=== PATIENT | male | born 1950 | race Caucasian/White ===

== ENCOUNTER → 2017-12-04 | Outpatient (CLI) | payer MEDICARE | LOC: M RAD 14:01 | DX: M15.0 Primary generalized (osteo)arthritis (principal); M54.17 Radiculopathy, lumbosacral region | CPT/HCPCS: 72148 ==

== ENCOUNTER → 2018-04-21 | Outpatient (CLI) | payer MEDICARE ==
[2018-04-21 10:49] LABS: BASO # 0.1 10^3/uL (0.0-0.2); EOS # 0.3 10^3/uL (0.0-0.50); HEMATOCRIT 47.9 % (42.0-52.0); HEMOGLOBIN 16.5 g/dl (13.5-17.5); IMMATURE GRANULOCYTE # 0.1 10^3/uL (0-0); IMMATURE GRANULOCYTE % 0.9 % (0-3.0); LYMPH # 2.3 10^3/uL (1.5-4.5); MEAN CORPUSCULAR HEMOGLOBIN 33.1 pg (27.0-33.0); MEAN CORPUSCULAR HGB CONC 34.4 g/dl (32.0-36.5); MONO # 0.7 10^3/uL (0.0-0.8); MONO % 10.7 % (0.0-5.0); NEUTROPHILS # 3.4 10^3/uL (1.8-7.7); NEUTROPHILS % 49.4 % (36.0-66.0); PLATELET COUNT, AUTOMATED 222 10^3/uL (150-450); RED BLOOD COUNT 4.99 10^6/uL (4.30-6.10); RED CELL DISTRIBUTION WIDTH 11.9 % (11.5-14.5); WHITE BLOOD COUNT 6.8 10^3/uL (4.0-10.0)
[2018-04-21 10:59] LABS: INR 0.94; PROTHROMBIN TIME 12.6 SECONDS (12.1-14.4)
[2018-04-21 11:00] LABS: PARTIAL THROMBOPLASTIN TIME 28.1 SECONDS (25.4-37.6)
[2018-04-21 11:18] LABS: ALBUMIN/GLOBULIN RATIO 1.14 (1.00-1.93); ALKALINE PHOSPHATASE 86 U/L (45-117); ALT/SGPT 37 U/L (12-78); ANION GAP 7 MEQ/L (8-16); AST/SGOT 20 U/L (7-37); BILIRUBIN,TOTAL 0.6 MG/DL (0.2-1.0); BLOOD UREA NITROGEN 16 MG/DL (7-18); CALCIUM LEVEL 9.4 MG/DL (8.8-10.2); CARBON DIOXIDE LEVEL 29 MEQ/L (21-32); CHLORIDE LEVEL 105 MEQ/L (98-107); CREATININE FOR GFR 1.02 MG/DL (0.70-1.30); GLOMERULAR FILTRATION RATE > 60.0 (>49); GLUCOSE, FASTING 100 MG/DL (70-100); LDH LACTATE DEHYDROGENASE 204 U/L (87-241); POTASSIUM SERUM 4.5 MEQ/L (3.5-5.1); SODIUM LEVEL 141 MEQ/L (136-145); TOTAL PROTEIN 7.5 GM/DL (6.4-8.2)
[2018-04-21 11:31] LABS: APPEARANCE, URINE CLEAR (CLEAR); BACTERIA, URINE AUTO NEGATIVE (NEGATIVE); BILIRUBIN, URINE AUTO NEGATIVE (NEGATIVE); BLOOD, URINE BLOOD NEGATIVE (NEGATIVE); COLOR, URINE YELLOW (YELLOW); GLUCOSE, URINE (UA) AUTO NEGATIVE (NEGATIVE); KETONE, URINE AUTO NEGATIVE (NEGATIVE); LEUKOCYTE ESTERASE, URINE AUTO NEGATIVE (NEGATIVE); NITRITE, URINE AUTO NEGATIVE (NEGATIVE); PROTEIN, URINE AUTO NEGATIVE (NEGATIVE); RBC, URINE AUTO 3 /HPF (0-3); SPECIFIC GRAVITY URINE AUTO 1.014 (1.002-1.035); SQUAMOUS EPITHELIAL CELL UR AU 0 /HPF (0-6); UROBILINOGEN, URINE AUTO 0.2 mg/dL (0.0-2.0); WBC, URINE AUTO 0 /HPF (0-3)
== END ==
LOC: M LAB 09:55
DX: I67.1 Cerebral aneurysm, nonruptured (principal); Z79.01 Long term (current) use of anticoagulants; Z79.899 Other long term (current) drug therapy
CPT/HCPCS: 71046

== ENCOUNTER 2018-05-21 18:08 | Inpatient (IN) | payer MEDICARE ==
[2018-05-21] MEDS ORDERED: MOM 30ML SUSPENSION UDC PO (20:00)
[2018-05-21] MEDS: DOCUSATE SODIUM 100 MG CAP PO (20:54)
[2018-05-21] MEDS: zolPIDEM TARTRATE 10MG TAB PO (20:54)
[2018-05-21] MEDS: APIXABAN 5 MG TAB (ELIQUIS) PO (20:54)
[2018-05-21] MEDS: PANTOPRAZOLE 40MG TAB (PROTONIX) PO (20:54)
[2018-05-21] MEDS ORDERED: POLYVINYL ALCOHOL OPHTH SOLN 15 ML(LIQUITEARS) OS (21:00)
[2018-05-21] MEDS: POLYVINYL ALCOHOL OPHTH SOLN 15 ML(LIQUITEARS) OS (21:23)
[2018-05-22 06:24] LABS: HEMATOCRIT 44.8 % (42.0-52.0); HEMOGLOBIN 14.6 g/dl (13.5-17.5); MEAN CORPUSCULAR HEMOGLOBIN 32.3 pg (27.0-33.0); MEAN CORPUSCULAR HGB CONC 32.6 g/dl (32.0-36.5); MEAN CORPUSCULAR VOLUME 99.1 fl (80.0-96.0); PLATELET COUNT, AUTOMATED 246 10^3/uL (150-450); RED BLOOD COUNT 4.52 10^6/uL (4.30-6.10); RED CELL DISTRIBUTION WIDTH 12.4 % (11.5-14.5); WHITE BLOOD COUNT 7.8 10^3/uL (4.0-10.0)
[2018-05-22 06:27] LABS: ADD MANUAL DIFFER YES; DIFF SLIDE NUMBER 76; POSITIVE MORPH POS FLAG
[2018-05-22] MEDS: POLYVINYL ALCOHOL OPHTH SOLN 15 ML(LIQUITEARS) OS ×5 (06:39→21:55)
[2018-05-22 07:18] LABS: ATYPICAL LYMPH 12 % (0-5); BANDS 1 % (< 11); EOSINOPHILS 5 % (0-5); LYMPHOCYTES 25 % (16-52); MONOCYTES 9 % (0-8); NEUTROPHILS 48 % (35-75)
[2018-05-22 07:20] LABS: ANISOCYTOSIS 1+; PLATELET ESTIMATE NORMAL (NORMAL)
[2018-05-22 08:19] LABS: APPEARANCE, URINE CLEAR (CLEAR); BACTERIA, URINE AUTO NEGATIVE (NEGATIVE); BILIRUBIN, URINE AUTO NEGATIVE (NEGATIVE); BLOOD, URINE BLOOD NEGATIVE (NEGATIVE); COLOR, URINE YELLOW (YELLOW); GLUCOSE, URINE (UA) AUTO NEGATIVE (NEGATIVE); KETONE, URINE AUTO NEGATIVE (NEGATIVE); LEUKOCYTE ESTERASE, URINE AUTO NEGATIVE (NEGATIVE); MUCUS, URINE SMALL (NEGATIVE); NITRITE, URINE AUTO NEGATIVE (NEGATIVE); PROTEIN, URINE AUTO NEGATIVE (NEGATIVE); RBC, URINE AUTO 1 /HPF (0-3); SPECIFIC GRAVITY URINE AUTO 1.014 (1.002-1.035); SQUAMOUS EPITHELIAL CELL UR AU 0 /HPF (0-6); WBC, URINE AUTO 0 /HPF (0-3)
[2018-05-22] MEDS: CLOPIDOGREL 75 MG TAB PO (08:22)
[2018-05-22] MEDS: ASPIRIN 325 MG TAB PO (08:22)
[2018-05-22] MEDS: hydroCHLOROthiazide 25 MG TAB PO (08:22)
[2018-05-22] MEDS: PANTOPRAZOLE 40MG TAB (PROTONIX) PO ×2 (08:22→21:55)
[2018-05-22] MEDS: APIXABAN 5 MG TAB (ELIQUIS) PO ×2 (08:22→21:55)
[2018-05-22] MEDS: MELOXICAM (MOBIC) 7.5 MG TAB PO (08:22)
[2018-05-22] MEDS: DOCUSATE SODIUM 100 MG CAP PO ×2 (08:23→21:55)
[2018-05-22] MEDS: LISINOPRIL 40 MG TAB PO (08:23)
[2018-05-22] MEDS: ATORVASTATIN 20 MG TAB PO (08:23)
[2018-05-22] MEDS: ACETAMINOPHEN TAB 650MG DOSE (2X325MG) PO (17:33)
[2018-05-22] MEDS: zolPIDEM TARTRATE 10MG TAB PO (21:55)
[2018-05-23] MEDS: POLYVINYL ALCOHOL OPHTH SOLN 15 ML(LIQUITEARS) OS ×5 (05:47→20:33)
[2018-05-23] MEDS: hydroCHLOROthiazide 25 MG TAB PO (08:45)
[2018-05-23] MEDS: CLOPIDOGREL 75 MG TAB PO (08:45)
[2018-05-23] MEDS: APIXABAN 5 MG TAB (ELIQUIS) PO ×2 (08:45→20:32)
[2018-05-23] MEDS: LISINOPRIL 40 MG TAB PO (08:45)
[2018-05-23] MEDS: ASPIRIN 325 MG TAB PO (08:45)
[2018-05-23] MEDS: PANTOPRAZOLE 40MG TAB (PROTONIX) PO ×2 (08:45→20:32)
[2018-05-23] MEDS: ATORVASTATIN 20 MG TAB PO (08:46)
[2018-05-23] MEDS: DOCUSATE SODIUM 100 MG CAP PO ×2 (08:46→20:33)
[2018-05-23] MEDS: zolPIDEM TARTRATE 10MG TAB PO (20:32)
[2018-05-24] MEDS: POLYVINYL ALCOHOL OPHTH SOLN 15 ML(LIQUITEARS) OS ×5 (05:27→21:10)
[2018-05-24] MEDS: ASPIRIN 325 MG TAB PO (09:12)
[2018-05-24] MEDS: CLOPIDOGREL 75 MG TAB PO (09:12)
[2018-05-24] MEDS: LISINOPRIL 40 MG TAB PO (09:12)
[2018-05-24] MEDS: hydroCHLOROthiazide 25 MG TAB PO (09:12)
[2018-05-24] MEDS: PANTOPRAZOLE 40MG TAB (PROTONIX) PO ×2 (09:12→21:10)
[2018-05-24] MEDS: VITAMIN D 50,000 UNITS CAPSULE (ERGOCALCIFEROL 1.25MG) PO (09:12)
[2018-05-24] MEDS: ATORVASTATIN 20 MG TAB PO (09:12)
[2018-05-24] MEDS: APIXABAN 5 MG TAB (ELIQUIS) PO ×2 (09:12→21:10)
[2018-05-24] MEDS: DOCUSATE SODIUM 100 MG CAP PO ×2 (09:13→21:10)
[2018-05-24] MEDS: zolPIDEM TARTRATE 10MG TAB PO (21:10)
[2018-05-25] MEDS: POLYVINYL ALCOHOL OPHTH SOLN 15 ML(LIQUITEARS) OS ×5 (06:10→20:03)
[2018-05-25] MEDS: LISINOPRIL 40 MG TAB PO (09:28)
[2018-05-25] MEDS: ASPIRIN 325 MG TAB PO (09:28)
[2018-05-25] MEDS: APIXABAN 5 MG TAB (ELIQUIS) PO ×2 (09:28→20:01)
[2018-05-25] MEDS: PANTOPRAZOLE 40MG TAB (PROTONIX) PO ×2 (09:28→20:02)
[2018-05-25] MEDS: ATORVASTATIN 20 MG TAB PO (09:28)
[2018-05-25] MEDS: hydroCHLOROthiazide 25 MG TAB PO (09:28)
[2018-05-25] MEDS: CLOPIDOGREL 75 MG TAB PO (09:28)
[2018-05-25] MEDS: DOCUSATE SODIUM 100 MG CAP PO ×2 (09:29→20:02)
[2018-05-25] MEDS: prednisoLONE ACET 1% OPHTH SUSP 5ML XX ×3 (13:00→20:04)
[2018-05-25] MEDS: FLUTICASONE PROP 0.05% NASAL SPRAY 16 GM (FLONASE) NARES (15:09)
[2018-05-25] MEDS: SODIUM CHLORIDE NASAL 0.65% SPRAY BTL (OCEAN) ×2 (15:09→20:04)
[2018-05-25] MEDS: zolPIDEM TARTRATE 10MG TAB PO (20:02)
[2018-05-26] MEDS: POLYVINYL ALCOHOL OPHTH SOLN 15 ML(LIQUITEARS) OS ×5 (05:36→20:56)
[2018-05-26 07:25] LABS: ANION GAP 3 MEQ/L (8-16); BLOOD UREA NITROGEN 20 MG/DL (7-18); CARBON DIOXIDE LEVEL 32 MEQ/L (21-32); CHLORIDE LEVEL 101 MEQ/L (98-107); CREATININE FOR GFR 1.08 MG/DL (0.70-1.30); GLOMERULAR FILTRATION RATE > 60.0 (>49); GLUCOSE, FASTING 98 MG/DL (70-100); POTASSIUM SERUM 3.8 MEQ/L (3.5-5.1); SODIUM LEVEL 136 MEQ/L (136-145)
[2018-05-26] MEDS: PANTOPRAZOLE 40MG TAB (PROTONIX) PO ×2 (09:34→20:55)
[2018-05-26] MEDS: APIXABAN 5 MG TAB (ELIQUIS) PO ×2 (09:34→20:55)
[2018-05-26] MEDS: LISINOPRIL 40 MG TAB PO (09:34)
[2018-05-26] MEDS: ASPIRIN 325 MG TAB PO (09:34)
[2018-05-26] MEDS: CLOPIDOGREL 75 MG TAB PO (09:34)
[2018-05-26] MEDS: hydroCHLOROthiazide 25 MG TAB PO (09:34)
[2018-05-26] MEDS: ATORVASTATIN 20 MG TAB PO (09:34)
[2018-05-26] MEDS: DOCUSATE SODIUM 100 MG CAP PO ×2 (09:34→20:55)
[2018-05-26] MEDS: FLUTICASONE PROP 0.05% NASAL SPRAY 16 GM (FLONASE) NARES (09:35)
[2018-05-26] MEDS: prednisoLONE ACET 1% OPHTH SUSP 5ML XX ×4 (09:35→20:56)
[2018-05-26] MEDS: SODIUM CHLORIDE NASAL 0.65% SPRAY BTL (OCEAN) ×3 (09:36→20:56)
[2018-05-26] MEDS: ACETAMINOPHEN TAB 650MG DOSE (2X325MG) PO (17:49)
[2018-05-26] MEDS: zolPIDEM TARTRATE 10MG TAB PO (20:55)
[2018-05-26] MEDS: ULTRACET TAB PO (23:02)
[2018-05-27] MEDS: POLYVINYL ALCOHOL OPHTH SOLN 15 ML(LIQUITEARS) OS ×3 (05:46→12:28)
[2018-05-27] MEDS: APIXABAN 5 MG TAB (ELIQUIS) PO (08:33)
[2018-05-27] MEDS: PANTOPRAZOLE 40MG TAB (PROTONIX) PO (08:33)
[2018-05-27] MEDS: CLOPIDOGREL 75 MG TAB PO (08:33)
[2018-05-27] MEDS: ASPIRIN 325 MG TAB PO (08:33)
[2018-05-27] MEDS: ATORVASTATIN 20 MG TAB PO (08:33)
[2018-05-27] MEDS: hydroCHLOROthiazide 25 MG TAB PO (08:33)
[2018-05-27] MEDS: LISINOPRIL 40 MG TAB PO (08:33)
[2018-05-27] MEDS: DOCUSATE SODIUM 100 MG CAP PO (08:34)
[2018-05-27] MEDS: SODIUM CHLORIDE NASAL 0.65% SPRAY BTL (OCEAN) (08:34)
[2018-05-27] MEDS: prednisoLONE ACET 1% OPHTH SUSP 5ML XX ×2 (08:34→12:28)
[2018-05-27] MEDS: FLUTICASONE PROP 0.05% NASAL SPRAY 16 GM (FLONASE) NARES (08:34)
== END 2018-05-27 15:50 | disposition home or self-care (01) | DRG 57 ==
LOC: M PM&R 18:08
DX: I69.354 Hemiplegia and hemiparesis following cerebral infarction affecting left non-dominant side (principal); I69.398 Other sequelae of cerebral infarction; E78.5 Hyperlipidemia, unspecified; I10 Essential (primary) hypertension; M19.90 Unspecified osteoarthritis, unspecified site; E66.9 Obesity, unspecified; Z68.35 Body mass index [BMI] 35.0-35.9, adult; G47.33 Obstructive sleep apnea (adult) (pediatric); H92.02 Otalgia, left ear; G44.009 Cluster headache syndrome, unspecified, not intractable; M51.36 Other intervertebral disc degeneration, lumbar region; R27.8 Other lack of coordination; Z96.611 Presence of right artificial shoulder joint; Z96.652 Presence of left artificial knee joint; I69.322 Dysarthria following cerebral infarction; I69.392 Facial weakness following cerebral infarction; R49.0 Dysphonia; Z79.82 Long term (current) use of aspirin; Z79.01 Long term (current) use of anticoagulants; Z79.02 Long term (current) use of antithrombotics/antiplatelets; Z79.899 Other long term (current) drug therapy

== ENCOUNTER 2018-05-29 14:02 | Outpatient (RCR) | payer MEDICARE | END 2018-05-31 | LOC: M ST 14:02 | DX: I69.391 Dysphagia following cerebral infarction (principal) | CPT/HCPCS: 92507 ==

== ENCOUNTER 2018-06-01 14:48 | Outpatient (RCR) | payer MEDICARE | END 2018-07-01 | LOC: M ST 06-17 15:03 | DX: I69.391 Dysphagia following cerebral infarction (principal) | CPT/HCPCS: 92526 ==

== ENCOUNTER 2018-07-03 12:46 | Outpatient (RCR) | payer MEDICARE | END 2018-07-31 | LOC: M ST 12:46 | DX: I69.391 Dysphagia following cerebral infarction (principal) | CPT/HCPCS: 92526 ==

== ENCOUNTER → 2018-11-02 | Outpatient (REF) | payer MEDICARE ==
[~2018-11-02] MED LIST: ALEV220C2 PO; ASPI-222 PO; ASPI1TAB20 PO; ASPI81TA85 PO; ATOR1TAB21 PO; ATOR40TA75 PO; BENA25CA2 PO; CEPA5.4L2 PO; CLOP75TA2 PO; COUM2.5T17 PO; DRIS50003 PO; ELIQ5TAB PO; FLUTISP NARES; HYDR25TAB PO; LISI40TA PO; LISI40TAB PO; MELO15TA28 PO; MILK120011 PO; MYLASUS16 PO; OXYC-141 PO; PANT40TA3 PO; PERCOCET PO; PLAV1TAB2 PO; PREDOPD AS; SENO8.6T5 PO; ZOLP10TA2 PO
== END ==
LOC: M SFHCPLAZ 19:03
PROVIDERS: ATTEND Dermatology
DX: C44.529 Squamous cell carcinoma of skin of other part of trunk (principal)

== ENCOUNTER 2019-02-23 06:27 | Day surgery (SDC) | payer MEDICARE ==
[~2019-02-23] VITALS: Ht 167.6 cm; Wt 98.4 kg
[~2019-02-23 06:27] MED LIST changes: +ACETAMINOPHEN 325 MG TAB PO PRN; +HYDR-2541 PO; +LISI40TA52 PO; -LISI40TAB PO
[2019-02-23] MEDS ORDERED: POVIDONE-IODINE 5% OPHTH PREP SOL 30ML As Ordered ONE (06:52)
[2019-02-23] MEDS ORDERED: TRIAMCINOLONE PRES FR 40 MG/ML 1ML(TRIESENCE)(OR EYE ONLY)(J3300 PER 1MG) As Ordered ONE (06:52)
[2019-02-23] MEDS ORDERED: MOXIFLOXACIN IN BSS 0.25MG/0.25ML INTRACAMERAL INJ (OR EYE ONLY)(J2280) As Ordered ONE (06:53)
[2019-02-23] MEDS ORDERED: LIDOCAINE 1% SDV 5 ML VIAL As Ordered ONE (06:53)
[2019-02-23] MEDS ORDERED: HEALON DUET PRO(HEALON 10MG/ML 0.55ML & HEALON ENDOCOAT 30MG/ML 0.85ML) As Ordered ONE (06:54)
[2019-02-23] MEDS ORDERED: PHENYLEPHRINE HCL 10 % OPHTH. SOL 5ML OS PRN (07:00)
[2019-02-23] MEDS ORDERED: LIDOCAINE 3.5 % 1ML OPHTH TOPICAL GEL OU ONE (07:00)
[2019-02-23] MEDS ORDERED: CYCLOPENTOLATE 2% OPHTH SOLN 2ML BTL OS ONE (07:00)
[2019-02-23] MEDS ORDERED: PHENYLEPHRINE 2.5% OPHTH SOL 2ML OS ONE (07:00)
[2019-02-23] MEDS ORDERED: OFLOXACIN 0.3 % (OCUFLOX) OPTH SOL 5ML OS ONE (07:00)
[2019-02-23] MEDS ORDERED: TROPICAMIDE 1% OPHTH SOLN 2ML OS ONE (07:00)
[2019-02-23] MEDS ORDERED: BSS with VANC/TOB/EPI for EYE CASES IR ONE (07:00)
[2019-02-23] MEDS ORDERED: MIDAZOLAM INJ 2 MG/2 ML VIAL (J2250) As Ordered ONE (07:18)
[2019-02-23] MEDS ORDERED: fentaNYL 100 MCG/2 ML INJECTION (J3010) As Ordered ONE (07:18)
[2019-02-23 09:30] VITALS: BP 118/76
[2019-02-23] MEDS ORDERED: ONDANSETRON 4MG/2ML VIAL (J2405) IV PRN (09:30)
[2019-02-23] MEDS ORDERED: IBUPROFEN 600 MG TAB PO PRN (09:30)
[2019-02-23] MEDS ORDERED: AcetaZOLAMIDE 500 MG ER CAP PO ONE (09:30)
[2019-02-23] MEDS ORDERED: TRIMETHOBENZAMIDE 300 MG CAP PO PRN (09:30)
== END 2019-02-23 09:39 | disposition home or self-care (01) ==
LOC: M SDC 06:27
PROVIDERS: ATTEND Ophthalmology
DX: H25.9 Unspecified age-related cataract (principal); I10 Essential (primary) hypertension; E78.5 Hyperlipidemia, unspecified; Z86.73 Personal history of transient ischemic attack (TIA), and cerebral infarction without residual deficits; G47.30 Sleep apnea, unspecified; Z79.899 Other long term (current) drug therapy; Z79.01 Long term (current) use of anticoagulants
CPT/HCPCS: 66984; 67515; 92015; J2250; J2280; J3010; J3300; V2632

== ENCOUNTER 2019-03-17 06:10 | Day surgery (SDC) | payer MEDICARE ==
[~2019-03-17] VITALS: Ht 167.6 cm; Wt 96.8 kg
[~2019-03-17 06:10] MED LIST changes: -ASPI-222 PO; +ASPI-527 PO; -ASPI1TAB20 PO; +ASPI325T57 PO; +LIDOCAINE 1% MDV 20ML VIAL SQ PRN
[2019-03-17] MEDS ORDERED: POVIDONE-IODINE 5% OPHTH PREP SOL 30ML As Ordered ONE (06:37)
[2019-03-17] MEDS ORDERED: TRIAMCINOLONE PRES FR 40 MG/ML 1ML(TRIESENCE)(OR EYE ONLY)(J3300 PER 1MG) As Ordered ONE (06:37)
[2019-03-17] MEDS ORDERED: LIDOCAINE 1% SDV 5 ML VIAL As Ordered ONE (06:37)
[2019-03-17] MEDS ORDERED: MOXIFLOXACIN IN BSS 0.25MG/0.25ML INTRACAMERAL INJ (OR EYE ONLY)(J2280) As Ordered ONE (06:38)
[2019-03-17] MEDS ORDERED: HEALON DUET PRO(HEALON 10MG/ML 0.55ML & HEALON ENDOCOAT 30MG/ML 0.85ML) As Ordered ONE (06:39)
[2019-03-17] MEDS ORDERED: LIDOCAINE W/EPINEPHRINE 1% 20ML VIAL As Ordered ONE (06:42)
[2019-03-17] MEDS ORDERED: CYCLOPENTOLATE 2% OPHTH SOLN 2ML BTL OD ONE (07:00)
[2019-03-17] MEDS ORDERED: TROPICAMIDE 1% OPHTH SOLN 2ML OD ONE (07:00)
[2019-03-17] MEDS ORDERED: LIDOCAINE 3.5 % 1ML OPHTH TOPICAL GEL OU ONE (07:00)
[2019-03-17] MEDS ORDERED: OFLOXACIN 0.3 % (OCUFLOX) OPTH SOL 5ML OD ONE (07:00)
[2019-03-17] MEDS ORDERED: BSS with VANC/TOB/EPI for EYE CASES IR ONE (07:00)
[2019-03-17] MEDS ORDERED: PHENYLEPHRINE HCL 10 % OPHTH. SOL 5ML OD PRN (07:00)
[2019-03-17] MEDS ORDERED: PHENYLEPHRINE 2.5% OPHTH SOL 2ML OD ONE (07:00)
[2019-03-17] MEDS ORDERED: MIDAZOLAM INJ 2 MG/2 ML VIAL (J2250) As Ordered ONE (07:17)
[2019-03-17] MEDS ORDERED: LIDOCAINE 2% W/EPIN INJ 20ML **PRES FREE As Ordered ONE (07:23)
[2019-03-17] MEDS ORDERED: fentaNYL 100 MCG/2 ML INJECTION (J3010) As Ordered ONE (07:37)
[2019-03-17] MEDS ORDERED: AcetaZOLAMIDE 500 MG ER CAP As Ordered ONE (08:05)
[2019-03-17 08:15] VITALS: BP 116/58
[2019-03-17] MEDS ORDERED: AcetaZOLAMIDE 500 MG ER CAP PO ONE (08:15)
[2019-03-17] MEDS ORDERED: TRIMETHOBENZAMIDE 300 MG CAP PO PRN (08:15)
[2019-03-17] MEDS ORDERED: ONDANSETRON 4MG/2ML VIAL (J2405) IV PRN (08:15)
== END 2019-03-17 08:25 | disposition home or self-care (01) ==
LOC: M SDC 06:10
PROVIDERS: ATTEND Ophthalmology
DX: H25.9 Unspecified age-related cataract (principal); I10 Essential (primary) hypertension; E78.5 Hyperlipidemia, unspecified; Z86.73 Personal history of transient ischemic attack (TIA), and cerebral infarction without residual deficits; G47.30 Sleep apnea, unspecified; Z79.01 Long term (current) use of anticoagulants; Z79.02 Long term (current) use of antithrombotics/antiplatelets; Z79.82 Long term (current) use of aspirin; Z79.899 Other long term (current) drug therapy
CPT/HCPCS: 66984; 67515; 92015; J2250; J2280; J3010; J3300; V2632

== ENCOUNTER → 2019-07-08 | Outpatient (CLI) | payer MEDICARE ==
[~2019-07-08] MED LIST changes: -ACETAMINOPHEN 325 MG TAB PO PRN; -LIDOCAINE 1% MDV 20ML VIAL SQ PRN
--- NOTE | 2019-07-08 12:49 | REP ---
Right ankle four views: There are no comparisons. Mineralization and joint spaces are unremarkable. There is no fracture or dislocation. There is a spur along the superior margin of the talar neck. There is a calcaneal plantar spur. The acetabulum appears hypertrophied. There is vascular calcified atheroma. Electronically Signed by Farshad Silva MD 07/08/2019 12:40 P
== END ==
LOC: M WUC 11:54
PROVIDERS: ATTEND Physician Assistant
DX: M25.771 Osteophyte, right ankle (principal); M77.30 Calcaneal spur, unspecified foot; I70.201 Unspecified atherosclerosis of native arteries of extremities, right leg

== ENCOUNTER → 2019-09-21 | Outpatient (CLI) | payer MEDICARE ==
--- NOTE | 2019-09-21 12:49 | REP ---
PA and lateral chest: Comparison is a 2017. The lung leblanc are clear. The cardiac size is normal. 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 The chadd, mediastinum, and skeletal structures are unremarkable. Impression: Negative PA and lateral chest. There is no interval change. Electronically Signed by Farshad Silva MD 09/21/2019 12:40 P
--- NOTE | 2019-09-22 06:59 | ECGEPIP ---
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
== END ==
LOC: M EKG 11:40
PROVIDERS: ATTEND Emergency Medicine
DX: Z01.818 Encounter for other preprocedural examination (principal); Z13.6 Encounter for screening for cardiovascular disorders; R94.31 Abnormal electrocardiogram [ECG] [EKG]

== ENCOUNTER → 2020-04-07 | Outpatient (CLI) | payer MEDICARE ==
[~2020-04-07] MED LIST changes: -ASPI81TA85 PO; +ASPI81TA86 PO; +PANT40TA29 PO; -PANT40TA3 PO
--- NOTE | 2020-05-25 10:25 | ECGEPIP ---
[facility] Test Date: 2020-04-07 Pat Name: CORA HAYWARD JR Department: Room: - Gender: Male [employer] Maker: [employer]ZA : 1950 Requested By: Linda Munoz Order Number: [id number] Reading MD: Ariel Cannon Measurements Intervals [place] Rate: 66 P: 70 AR: 181 QRS: -28 QRSD: 92 T: 31 QT: 381 QTc: 399 Interpretive Statements NORMAL SINUS RHYTHM LEFT AXIS DEVIATION MINOR REPOLORIZATION ABNORMALITIES PRIOR TRACING N/A SEE SCANNED DOWNTIME REPORT
--- NOTE | 2020-05-29 08:52 | REP ---
CHEST X-RAY: 2-VIEWS COMPARISON: 09/21/19 HISTORY: Preop TECHNIQUE: 2-views of the chest are performed. Dictation is delayed due to computer malfunctions. FINDINGS: There is no acute infection. The heart is not significantly enlarged. There is tortuosity of the thoracic aorta. The mediastinal silhouette is unchanged. There is metallic prosthetic component of the right humeral head. There are degenerative changes of the spine. IMPRESSION: No evidence of acute pulmonary disease. MTDD
[2020-06-01 15:55] LABS: BASO % 0.5 % (0.0-1.0); EOS # 0.4 10^3/uL (0.0-0.5); EOS % 4.8 % (0.0-3.0); HEMATOCRIT 46.4 % (42.0-52.0); HEMOGLOBIN 15.1 g/dl (13.5-17.5); LYMPH # 1.9 10^3/uL (1.5-5.0); LYMPH % 23.1 % (24.0-44.0); MEAN CORPUSCULAR HEMOGLOBIN 31.9 pg (27.0-33.0); MEAN CORPUSCULAR HGB CONC 32.5 g/dl (32.0-36.5); MEAN CORPUSCULAR VOLUME 98.1 fl (80.0-96.0); MONO # 0.9 10^3/uL (0.0-0.8); MONO % 11.1 % (0.0-5.0); NEUTROPHILS # 4.8 10^3/uL (1.5-8.5); PLATELET COUNT, AUTOMATED 256 10^3/uL (150-450); PROTHROMBIN TIME 14.7 SECONDS (12.5-14.3); RED BLOOD COUNT 4.73 10^6/uL (4.30-6.10); WHITE BLOOD COUNT 8.1 10^3/uL (4.0-10.0)
[2020-06-01 15:56] LABS: INR 1.13; PARTIAL THROMBOPLASTIN TIME 34.2 SECONDS (24.2-38.5)
[2020-06-01 15:59] LABS: APPEARANCE, URINE CLEAR (CLEAR); BACTERIA, URINE AUTO NEGATIVE (NEGATIVE); BILIRUBIN, URINE AUTO NEGATIVE (NEGATIVE); BLOOD, URINE BLOOD NEGATIVE (NEGATIVE); COLOR, URINE YELLOW (YELLOW); GLUCOSE, URINE (UA) AUTO NEGATIVE (NEGATIVE); KETONE, URINE AUTO NEGATIVE (NEGATIVE); LEUKOCYTE ESTERASE, URINE AUTO NEGATIVE (NEGATIVE); MUCUS, URINE SMALL (NEGATIVE); NITRITE, URINE AUTO NEGATIVE (NEGATIVE); PROTEIN, URINE AUTO NEGATIVE (NEGATIVE); RBC, URINE AUTO 2 /HPF (0-3); SPECIFIC GRAVITY URINE AUTO 1.018 (1.002-1.035); SQUAMOUS EPITHELIAL CELL UR AU 0 /HPF (0-6); WBC, URINE AUTO 0 /HPF (0-3)
[2020-06-03 11:52] LABS: ALBUMIN 3.8 GM/DL (3.2-5.2); ALT/SGPT 20 U/L (12-78); BILIRUBIN,TOTAL 0.4 MG/DL (0.2-1.0); BLOOD UREA NITROGEN 21 MG/DL (7-18); CALCIUM LEVEL 9.2 MG/DL (8.8-10.2); CARBON DIOXIDE LEVEL 32 MEQ/L (21-32); CHLORIDE LEVEL 104 MEQ/L (98-107); CREATININE FOR GFR 0.94 MG/DL (0.70-1.30); GLOMERULAR FILTRATION RATE > 60.0 (>49); GLUCOSE, FASTING 104 MG/DL (70-100); POTASSIUM SERUM 3.7 MEQ/L (3.5-5.1); SODIUM LEVEL 141 MEQ/L (136-145)
== END ==
LOC: M LAB 08:17
PROVIDERS: ATTEND Neurological Surgery
DX: Z01.812 Encounter for preprocedural laboratory examination (principal); Z79.01 Long term (current) use of anticoagulants; Z79.899 Other long term (current) drug therapy

== ENCOUNTER → 2020-10-25 | Outpatient (CLI) | payer MEDICARE ==
[~2020-10-25] MED LIST changes: +HYDR-3490 PO; -HYDR25TAB PO; -LISI40TA PO; +LISI40TA4 PO
[2020-10-25 12:21] LABS: BLOOD UREA NITROGEN 17 MG/DL (7-18); CREATININE FOR GFR 1.05 MG/DL (0.70-1.30); GLOMERULAR FILTRATION RATE > 60.0 (>49)
== END ==
LOC: M LAB 11:07
PROVIDERS: ATTEND Neurological Surgery
DX: I67.1 Cerebral aneurysm, nonruptured (principal)

== ENCOUNTER → 2021-04-14 | Outpatient (CLI) | payer MEDICARE ==
[2021-04-14 10:57] LABS: BLOOD UREA NITROGEN 22 MG/DL (7-18); CREATININE FOR GFR 1.15 MG/DL (0.70-1.30); GLOMERULAR FILTRATION RATE > 60.0 (>42)
== END ==
LOC: M LAB 08:41
PROVIDERS: ATTEND Family Medicine
DX: N28.89 Other specified disorders of kidney and ureter (principal)

== ENCOUNTER → 2021-10-08 | Outpatient (CLI) | payer MEDICARE ==
[2021-10-08 10:06] LABS: BLOOD UREA NITROGEN 17 MG/DL (7-18); CREATININE FOR GFR 1.13 MG/DL (0.70-1.30); GLOMERULAR FILTRATION RATE > 60.0 (>42)
== END ==
LOC: M LAB 09:07
PROVIDERS: ATTEND Neurological Surgery
DX: I67.1 Cerebral aneurysm, nonruptured (principal)

== ENCOUNTER → 2022-08-28 | Outpatient (CLI) | payer MEDICARE ==
[~2022-08-28] MED LIST changes: +CLOP75TA99 PO; -PLAV1TAB2 PO
== END ==
LOC: M SLEEP 20:00
PROVIDERS: ATTEND Internal Medicine Pulmonary Disease
DX: G47.33 Obstructive sleep apnea (adult) (pediatric) (principal)

== ENCOUNTER → 2023-05-13 | Outpatient (CLI) | payer MEDICARE ==
[~2023-05-13] MED LIST changes: +FLUT50SP17 NARES; -FLUTISP NARES
[2023-05-13 08:46] LABS: BASO # 0.1 10^3/uL (0.0-0.2); EOS # 0.3 10^3/uL (0.0-0.5); EOS % 4.3 % (0.0-3.0); HEMATOCRIT 44.9 % (42.0-52.0); HEMOGLOBIN 14.5 g/dl (13.5-17.5); LYMPH # 1.7 10^3/uL (1.5-5.0); LYMPH % 28.2 % (24.0-44.0); MEAN CORPUSCULAR HEMOGLOBIN 31.4 pg (27.0-33.0); MEAN CORPUSCULAR HGB CONC 32.3 g/dl (32.0-36.5); MEAN CORPUSCULAR VOLUME 97.2 fl (80.0-96.0); MONO % 16.4 % (2.0-8.0); NEUTROPHILS # 2.9 10^3/uL (1.5-8.5); NEUTROPHILS % 49.6 % (36.0-66.0); PLATELET COUNT, AUTOMATED 247 10^3/uL (150-450); RED BLOOD COUNT 4.62 10^6/uL (4.30-6.10); WHITE BLOOD COUNT 5.9 10^3/uL (4.0-10.0)
[2023-05-13 09:09] LABS: LIPASE 29 U/L (12-53)
[2023-05-13 09:11] LABS: AMYLASE 42 U/L (30-118)
[2023-05-13 09:12] LABS: ALKALINE PHOSPHATASE 120 U/L (46-116); ALT/SGPT 26 U/L (7.0-40); AST/SGOT 18 U/L (<34); BILIRUBIN,TOTAL 0.6 MG/DL (0.3-1.2); BLOOD UREA NITROGEN 17 MG/DL (9-23); CALCIUM LEVEL 9.1 MG/DL (8.3-10.6); CARBON DIOXIDE LEVEL 28 MMOL/L (20-31); CHLORIDE LEVEL 105 MMOL/L (98-107); CREATININE FOR GFR 0.82 MG/DL (0.70-1.30); GLOMERULAR FILTRATION RATE > 60.0 (>42); GLUCOSE, FASTING 129 MG/DL (74-106); POTASSIUM SERUM 4.1 MMOL/L (3.5-5.1); SODIUM LEVEL 141 MMOL/L (136-145); TOTAL PROTEIN 6.8 G/DL (5.7-8.2)
== END ==
LOC: M LAB 08:18
PROVIDERS: ATTEND Nurse Practitioner Family
DX: R11.10 Vomiting, unspecified (principal)

== ENCOUNTER → 2023-05-19 | Outpatient (CLI) | payer MEDICARE ==
[~2023-05-19] MED LIST changes: +E-Z-GAS II EFFERVESCENT PACKET (SODIUM BICARB./CITRIC ACID/SIMETHICONE) As Ordered ONE; +E-Z-HD 98% w/w 340GM SUSP BTL As Ordered ONE; +E-Z-PAQUE 96% w/w SUSP 176GM BTL As Ordered ONE
== END ==
LOC: M RAD 08:34
PROVIDERS: ATTEND Nurse Practitioner Family
DX: K21.9 Gastro-esophageal reflux disease without esophagitis (principal); K63.0 Abscess of intestine

== ENCOUNTER → 2024-09-08 | Outpatient (CLI) | payer MEDICARE ==
[~2024-09-08] MED LIST changes: -E-Z-GAS II EFFERVESCENT PACKET (SODIUM BICARB./CITRIC ACID/SIMETHICONE) As Ordered ONE; -E-Z-HD 98% w/w 340GM SUSP BTL As Ordered ONE; -E-Z-PAQUE 96% w/w SUSP 176GM BTL As Ordered ONE; -FLUT50SP17 NARES; +FLUTISP NARES
== END ==
LOC: M PLAIMG 11:29
PROVIDERS: ATTEND Nurse Practitioner Family
DX: R06.02 Shortness of breath (principal); R05.9 Cough, unspecified

== ENCOUNTER → 2025-01-13 | Outpatient (CLI) | payer MEDICARE | LOC: M PLAIMG 15:06 | PROVIDERS: ATTEND Nurse Practitioner Family | DX: R05.9 Cough, unspecified (principal); R06.02 Shortness of breath ==